=== PATIENT | male | born 1975 | race Caucasian/White ===

== ENCOUNTER 2022-11-26 03:55 | Inpatient (IN) | payer MEDICAID, OTHER ==
[~2022-11-26] VITALS: Ht 182.9 cm; Wt 91.3 kg
[2022-11-26] VITALS (8 sets, daily range): BP systolic 125–139; BP diastolic 72–87; PULSE 53–72; RESP 12–18; TEMP 97.4–98; O2SAT 95–100
[2022-11-26 04:22] LABS: Basophils # (auto) 0 10 ^3/uL (0-0.2); Basophils % (auto) 0.4 % (0.0-2.0); Eosinophils # (auto) 0.1 10 ^3/uL (0-0.8); Eosinophils % (auto) 0.7 % (0.0-7.0); Hematocrit 45.6 % (41.0-53.0); Hemoglobin 15.5 g/dL (13.5-17.5); Lymphocytes % (auto) 8.8 % (10.0-50.0); Mean Corpuscular Hemoglobin 31.6 pg (28.0-32.0); Monocytes # (auto) 0.4 10 ^3/uL (0-1.3); Monocytes % (auto) 3.3 % (0.0-12.0); Neutrophils # (auto) 9.8 10 ^3/uL (1.6-8.6); Neutrophils % (auto) 86.8 % (37.0-80.0); Red Cell Distribution Width 13.4 % (11.8-14.3); White Blood Cell 11.3 10^3/uL (4.4-10.8)
[2022-11-26 04:46] LABS: Alanine Aminotransferase 17 U/L (7-40); Albumin 4.6 g/dL (3.2-4.8); Alkaline Phosphatase 73 U/L (46-116); Anion Gap 4 (5-15); Aspartate Aminotransferase 15 U/L (13-40); BUN/Creatinine Ratio 11.7 (10.0-20.0); Bilirubin, Total 0.5 mg/dL (0.2-1.0); Blood Urea Nitrogen 14 mg/dL (9-23); Calcium 9.3 mg/dL (8.7-10.4); Carbon Dioxide 27 mmol/L (20-30); Chloride 104 mmol/L (98-107); Glucose 131 mg/dL (74-106); Magnesium 1.8 mg/dL (1.6-2.6); Potassium 3.8 mmol/L (3.5-5.1); Sodium 135 mmol/L (136-145); Total Protein 7.4 g/dL (5.7-8.2)
[2022-11-26] MEDS ORDERED: MAALOX PLUS or MAALOX 30 ML PO ONE (05:30)
[2022-11-26] MEDS ORDERED: ONDANSETRON HCL 4 MG/2 ML VIAL IV ONE ×3 (05:30→09:00)
[2022-11-26] MEDS ORDERED: DONNATAL 5ml ORAL Elix (BELLADONNA ALK-PHENOBARB) PO ONE (05:30)
[2022-11-26] MEDS ORDERED: LIDOCAINE VISCOUS 2% 15ML UD PO ONE (05:30)
[2022-11-26] MEDS ORDERED: MORPHINE SULFATE 4 MG/ML SYR/VIAL IV ONE (06:30)
[2022-11-26] MEDS ORDERED: SODIUM CHLORIDE 0.9% 1,000 ML IV ONE (06:30)
[2022-11-26] MEDS ORDERED: MORPHINE SULFATE INJ 2 MG/ml SYRG IV ONE (09:00)
[2022-11-26] MEDS ORDERED: ONDANSETRON HCL 4 MG/2 ML VIAL IV PRN ×2 (09:15)
[2022-11-26] MEDS ORDERED: MORPHINE SULFATE 4 MG/ML SYR/VIAL IV PRN (09:15)
[2022-11-26] MEDS ORDERED: DOCUSATE SOD 100 MG CAP PO PRN (09:15)
[2022-11-26] MEDS ORDERED: NITROGLYCERIN 0.4 MG SL TAB SL PRN (09:15)
[2022-11-26] MEDS ORDERED: ACETAMINOPHEN 325 MG TAB PO PRN (09:15)
[2022-11-26] MEDS: SODIUM CHLORIDE 0.9% 1,000 ML IV SCH ×3 (09:59→18:38)
[2022-11-26 10:19] LABS: INR 0.95 (0.9-1.15)
[2022-11-26] MEDS: ASPirin 81 mg TAB PO SCH (10:50)
[2022-11-26] MEDS: DOCUSATE SOD 100 MG CAP PO SCH (10:50)
[2022-11-26] MEDS: ENOXAPARIN SOD 100 MG/1 ML SYRINGE SC SCH ×2 (10:51→21:45)
[2022-11-26] MEDS: PANTOPRAZOLE 40 MG/10 ML VIAL INJ IV SCH (10:51)
[2022-11-26] MEDS: PIPERACILLIN-TAZOB 3.375GM 100 ML IV SCH ×2 (12:00→18:33)
[2022-11-26] MEDS: MORPHINE SULFATE INJ 2 MG/ml SYRG IV PRN (15:34)
[2022-11-26 18:00] LABS: Triglycerides 55 mg/dL (< 150)
[2022-11-26 18:01] LABS: LDL Cholesterol 83 mg/dL (< 100)
[2022-11-26 18:02] LABS: Cholesterol 155 mg/dL (< 200); HDL Cholesterol 61 mg/dL (40-59)
[2022-11-26] MEDS: metroNIDAZOLE 500MG/100ML 100 ML IV SCH ×2 (21:44→23:52)
[2022-11-26] MEDS: ATORVASTATIN 20 MG TAB PO SCH (21:44)
[2022-11-27] VITALS (8 sets, daily range): BP systolic 126–132; BP diastolic 75–81; PULSE 56–79; RESP 16–17; TEMP 97.8–98.6; O2SAT 95–98
[2022-11-27] MEDS: PIPERACILLIN-TAZOB 3.375GM 100 ML IV SCH ×2 (01:17→06:02)
[2022-11-27 07:35] LABS: Basophils # (auto) 0 10 ^3/uL (0-0.2); Basophils % (auto) 0.1 % (0.0-2.0); Eosinophils # (auto) 0.1 10 ^3/uL (0-0.8); Eosinophils % (auto) 1.1 % (0.0-7.0); Hematocrit 44.5 % (41.0-53.0); Hemoglobin 15.2 g/dL (13.5-17.5); Lymphocytes # (auto) 0.8 10 ^3/uL (0.4-5.4); Lymphocytes % (auto) 7.4 % (10.0-50.0); Mean Corpuscular Hemoglobin 31.5 pg (28.0-32.0); Mean Corpuscular Hgb Conc. 34.1 g/dL (32.0-36.0); Mean Corpuscular Volume 92.5 fL (80.0-100.0); Monocytes # (auto) 0.7 10 ^3/uL (0-1.3); Monocytes % (auto) 6.3 % (0.0-12.0); Neutrophils # (auto) 9.5 10 ^3/uL (1.6-8.6); Neutrophils % (auto) 85.1 % (37.0-80.0); Red Blood Cells 4.81 10^6/uL (4.5-5.90); Red Cell Distribution Width 13.1 % (11.8-14.3); White Blood Cell 11.1 10^3/uL (4.4-10.8)
[2022-11-27 07:55] LABS: Alanine Aminotransferase 20 U/L (7-40); Albumin 4.1 g/dL (3.2-4.8); Alkaline Phosphatase 58 U/L (46-116); Anion Gap 3 (5-15); Aspartate Aminotransferase 19 U/L (13-40); BUN/Creatinine Ratio 9.1 (10.0-20.0); Bilirubin, Total 1.1 mg/dL (0.2-1.0); Blood Urea Nitrogen 10 mg/dL (9-23); Carbon Dioxide 30 mmol/L (20-30); Chloride 101 mmol/L (98-107); Cholesterol 139 mg/dL (< 200); Glucose 111 mg/dL (74-106); HDL Cholesterol 56 mg/dL (40-59); LDL Cholesterol 66 mg/dL (< 100); Potassium 4.3 mmol/L (3.5-5.1); Sodium 134 mmol/L (136-145); Total Protein 6.8 g/dL (5.7-8.2); Triglycerides 77 mg/dL (< 150)
[2022-11-27] MEDS: metroNIDAZOLE 500MG/100ML 100 ML IV SCH ×2 (08:18→15:30)
[2022-11-27] MEDS: PANTOPRAZOLE 40 MG/10 ML VIAL INJ IV SCH (09:19)
[2022-11-27] MEDS: cefTRIAXone 1GM/50ML D5W 50 ML IV SCH (09:19)
[2022-11-27] MEDS: DOCUSATE SOD 100 MG CAP PO SCH (09:20)
[2022-11-27] MEDS: MORPHINE SULFATE INJ 2 MG/ml SYRG IV PRN ×2 (09:20→14:00)
[2022-11-27] MEDS: ASPirin 81 mg TAB PO SCH (09:20)
[2022-11-27] MEDS: ENOXAPARIN SOD 100 MG/1 ML SYRINGE SC SCH ×2 (09:20→21:01)
[2022-11-27] MEDS: SODIUM CHLORIDE 0.9% 1,000 ML IV SCH ×3 (10:15→21:48)
[2022-11-27] MEDS: HYDROmorphone HCL 2 MG/ML VL/or syr IV PRN (20:03)
[2022-11-27] MEDS: ATORVASTATIN 20 MG TAB PO SCH (21:47)
[2022-11-28] VITALS (7 sets, daily range): BP systolic 104–137; BP diastolic 69–80; PULSE 74–86; RESP 16–17; TEMP 97.9–98.6; O2SAT 94–100
[2022-11-28] MEDS: metroNIDAZOLE 500MG/100ML 100 ML IV SCH ×3 (00:03→16:01)
[2022-11-28] MEDS: HYDROmorphone HCL 2 MG/ML VL/or syr IV PRN ×3 (04:01→21:14)
[2022-11-28 05:48] LABS: Basophils # (auto) 0 10 ^3/uL (0-0.2); Basophils % (auto) 0.3 % (0.0-2.0); Eosinophils # (auto) 0.1 10 ^3/uL (0-0.8); Eosinophils % (auto) 1.1 % (0.0-7.0); Hematocrit 45.2 % (41.0-53.0); Hemoglobin 15.4 g/dL (13.5-17.5); Lymphocytes % (auto) 7.6 % (10.0-50.0); Mean Corpuscular Hemoglobin 31.5 pg (28.0-32.0); Mean Corpuscular Hgb Conc. 34.1 g/dL (32.0-36.0); Mean Corpuscular Volume 92.2 fL (80.0-100.0); Monocytes # (auto) 1.1 10 ^3/uL (0-1.3); Monocytes % (auto) 8.5 % (0.0-12.0); Neutrophils # (auto) 10.5 10 ^3/uL (1.6-8.6); Neutrophils % (auto) 82.5 % (37.0-80.0); Red Blood Cells 4.91 10^6/uL (4.5-5.90); Red Cell Distribution Width 13.1 % (11.8-14.3); White Blood Cell 12.7 10^3/uL (4.4-10.8)
[2022-11-28 06:21] LABS: Alanine Aminotransferase 15 U/L (7-40); Alkaline Phosphatase 63 U/L (46-116); Anion Gap 7 (5-15); Aspartate Aminotransferase 13 U/L (13-40); BUN/Creatinine Ratio 8.3 (10.0-20.0); Bilirubin, Total 0.8 mg/dL (0.2-1.0); Blood Urea Nitrogen 8 mg/dL (9-23); Calcium 8.6 mg/dL (8.7-10.4); Carbon Dioxide 26 mmol/L (20-30); Chloride 100 mmol/L (98-107); Glucose 88 mg/dL (74-106); Magnesium 1.6 mg/dL (1.6-2.6); Sodium 133 mmol/L (136-145)
[2022-11-28 06:22] LABS: Total Protein 6.5 g/dL (5.7-8.2)
[2022-11-28] MEDS: ASPirin 81 mg TAB PO SCH (08:31)
[2022-11-28] MEDS: cefTRIAXone 1GM/50ML D5W 50 ML IV SCH (08:31)
[2022-11-28] MEDS: DOCUSATE SOD 100 MG CAP PO SCH (08:31)
[2022-11-28] MEDS: ENOXAPARIN SOD 100 MG/1 ML SYRINGE SC SCH ×2 (08:31→21:15)
[2022-11-28] MEDS: PANTOPRAZOLE 40 MG/10 ML VIAL INJ IV SCH (08:31)
[2022-11-28] MEDS: SODIUM CHLORIDE 0.9% 1,000 ML IV SCH (11:15)
[2022-11-28] MEDS ORDERED: BUPIVACAINE 0.25% INJ 50ML VIAL ONE (11:32)
[2022-11-28] MEDS ORDERED: ONDANSETRON HCL 4 MG/2 ML VIAL ONE (11:43)
[2022-11-28] MEDS ORDERED: SUGAMMADEX 200mg/2ml Vial (100MG/ML) IV ONE (11:43)
[2022-11-28] MEDS ORDERED: GLYCOPYRROLATE 0.2 MG/ML 1ML VIAL ONE (11:43)
[2022-11-28] MEDS ORDERED: DexAMETHasone SOD PHOS 10MG/1ML VIAL INJ ONE (11:43)
[2022-11-28] MEDS ORDERED: LIDOCAINE 2% (LOCAL ANESTH.) PF 5ml SDV ONE (11:43)
[2022-11-28] MEDS ORDERED: HYDROmorphone HCL 2 MG/ML VL/or syr ONE (11:43)
[2022-11-28] MEDS ORDERED: KETOROLAC TROMETH 30 MG/ML 1ML VIAL ONE (11:43)
[2022-11-28] MEDS ORDERED: PROPOFOL 10 MG/ML 20 ML IV ONE (11:43)
[2022-11-28] MEDS ORDERED: MIDAZOLAM HCL 2MG/2ML 2ml VIAL (1mg/ml) ONE (11:43)
[2022-11-28] MEDS ORDERED: fentaNYL CITRATE 100 MCG/2 ML VL ONE ×2 (11:43→12:32)
[2022-11-28] MEDS ORDERED: ROCURONIUM 10MG/ML 10ML VIAL IV ONE (11:44)
[2022-11-28] MEDS ORDERED: NICOTINE 21MG/24 HR TOPICAL PATCH TD ONE (11:45)
[2022-11-28] MEDS ORDERED: ePHEDrine SULFATE 50 MG/ML AMP IV ONE (13:14)
[2022-11-28] MEDS ORDERED: MEPERIDINE HCL (25 MG/ML) 1ML VIAL ONE (13:24)
[2022-11-28] MEDS ORDERED: ONDANSETRON HCL 4 MG/2 ML VIAL IV PRN (14:15)
[2022-11-28] MEDS ORDERED: HYDROmorphone HCL 2 MG/ML VL/or syr IV PRN (14:15)
[2022-11-28] MEDS: ATORVASTATIN 20 MG TAB PO SCH (21:14)
[2022-11-29] MEDS: metroNIDAZOLE 500MG/100ML 100 ML IV SCH ×3 (01:06→15:44)
[2022-11-29] MEDS: HYDROmorphone HCL 2 MG/ML VL/or syr IV PRN ×4 (04:03→21:20)
[2022-11-29 05:00] VITALS: BP 112/70; PULSE 72; RESP 18; TEMP 97.9; O2SAT 97
[2022-11-29] MEDS: SODIUM CHLORIDE 0.9% 1,000 ML IV SCH ×2 (06:46→10:34)
[2022-11-29 08:00] VITALS: PULSE 83; PULSE 93; RESP 18; O2SAT 98
[2022-11-29 09:00] VITALS: BP 110/72; PULSE 77; RESP 18; TEMP 97.7; O2SAT 95
[2022-11-29] MEDS: ASPirin 81 mg TAB PO SCH (09:25)
[2022-11-29] MEDS: PANTOPRAZOLE 40 MG/10 ML VIAL INJ IV SCH (09:25)
[2022-11-29] MEDS: NICOTINE 21MG/24 HR TOPICAL PATCH TD SCH (09:25)
[2022-11-29] MEDS: cefTRIAXone 1GM/50ML D5W 50 ML IV SCH (09:25)
[2022-11-29] MEDS: DOCUSATE SOD 100 MG CAP PO SCH (09:25)
[2022-11-29] MEDS: ENOXAPARIN SOD 100 MG/1 ML SYRINGE SC SCH (09:25)
[2022-11-29] MEDS: MAGNESIUM SULFATE 1GM/100ML 100 ML IV SCH ×2 (10:34→11:45)
[2022-11-29 17:00] VITALS: BP 122/76; PULSE 77; RESP 20; TEMP 98.4; O2SAT 97
[2022-11-29 20:00] VITALS: PULSE 89
[2022-11-29] MEDS: ATORVASTATIN 20 MG TAB PO SCH (21:11)
[2022-11-29 22:00] VITALS: BP 133/85; PULSE 83; RESP 19; TEMP 98.3; O2SAT 96
[2022-11-29 23:17] LABS: Basophils # (auto) 0 10 ^3/uL (0-0.2); Basophils % (auto) 0.3 % (0.0-2.0); Eosinophils # (auto) 0.2 10 ^3/uL (0-0.8); Eosinophils % (auto) 2.6 % (0.0-7.0); Hematocrit 41.6 % (41.0-53.0); Hemoglobin 13.9 g/dL (13.5-17.5); Lymphocytes % (auto) 22.6 % (10.0-50.0); Mean Corpuscular Hemoglobin 31.3 pg (28.0-32.0); Mean Corpuscular Hgb Conc. 33.3 g/dL (32.0-36.0); Monocytes # (auto) 0.7 10 ^3/uL (0-1.3); Monocytes % (auto) 7.4 % (0.0-12.0); Neutrophils # (auto) 5.9 10 ^3/uL (1.6-8.6); Neutrophils % (auto) 67.1 % (37.0-80.0); Red Blood Cells 4.43 10^6/uL (4.5-5.90); Red Cell Distribution Width 13.3 % (11.8-14.3); White Blood Cell 8.8 10^3/uL (4.4-10.8)
[2022-11-29 23:34] LABS: Alanine Aminotransferase 75 U/L (7-40); Albumin 3.5 g/dL (3.2-4.8); Alkaline Phosphatase 60 U/L (46-116); Anion Gap 5 (5-15); Aspartate Aminotransferase 79 U/L (13-40); BUN/Creatinine Ratio 8.2 (10.0-20.0); Blood Urea Nitrogen 8 mg/dL (9-23); Calcium 7.9 mg/dL (8.7-10.4); Carbon Dioxide 27 mmol/L (20-30); Chloride 106 mmol/L (98-107); Glucose 95 mg/dL (74-106); Potassium 3.7 mmol/L (3.5-5.1); Sodium 138 mmol/L (136-145)
[2022-11-29 23:35] LABS: Bilirubin, Total 0.2 mg/dL (0.2-1.0); Total Protein 5.8 g/dL (5.7-8.2)
[2022-11-30] MEDS: metroNIDAZOLE 500MG/100ML 100 ML IV SCH ×2 (01:31→09:42)
[2022-11-30] MEDS: SODIUM CHLORIDE 0.9% 1,000 ML IV SCH (03:10)
[2022-11-30 05:00] VITALS: BP 126/72; PULSE 71; RESP 19; TEMP 98.4; O2SAT 94
[2022-11-30] MEDS: HYDROmorphone HCL 2 MG/ML VL/or syr IV PRN ×2 (05:23→09:28)
[2022-11-30 05:51] LABS: Basophils # (auto) 0 10 ^3/uL (0-0.2); Basophils % (auto) 0.3 % (0.0-2.0); Eosinophils # (auto) 0.2 10 ^3/uL (0-0.8); Eosinophils % (auto) 3.5 % (0.0-7.0); Hematocrit 37.9 % (41.0-53.0); Hemoglobin 12.7 g/dL (13.5-17.5); Lymphocytes # (auto) 1.8 10 ^3/uL (0.4-5.4); Lymphocytes % (auto) 27.8 % (10.0-50.0); Mean Corpuscular Hemoglobin 31.1 pg (28.0-32.0); Mean Corpuscular Hgb Conc. 33.5 g/dL (32.0-36.0); Mean Corpuscular Volume 92.7 fL (80.0-100.0); Monocytes # (auto) 0.4 10 ^3/uL (0-1.3); Neutrophils # (auto) 3.9 10 ^3/uL (1.6-8.6); Neutrophils % (auto) 61.4 % (37.0-80.0); Red Blood Cells 4.09 10^6/uL (4.5-5.90); Red Cell Distribution Width 13.2 % (11.8-14.3); White Blood Cell 6.3 10^3/uL (4.4-10.8)
[2022-11-30 06:05] LABS: Alanine Aminotransferase 68 U/L (7-40); Albumin 3.3 g/dL (3.2-4.8); Alkaline Phosphatase 54 U/L (46-116); Anion Gap 5 (5-15); Aspartate Aminotransferase 64 U/L (13-40); Bilirubin, Total 0.3 mg/dL (0.2-1.0); Blood Urea Nitrogen 8 mg/dL (9-23); Carbon Dioxide 28 mmol/L (20-30); Chloride 107 mmol/L (98-107); Glucose 97 mg/dL (74-106); Magnesium 1.8 mg/dL (1.6-2.6); Potassium 3.9 mmol/L (3.5-5.1); Sodium 140 mmol/L (136-145); Total Protein 5.4 g/dL (5.7-8.2)
[2022-11-30 08:00] VITALS: PULSE 65; PULSE 93; RESP 20; O2SAT 95
[2022-11-30 09:00] VITALS: BP 135/65; PULSE 61; RESP 16; TEMP 98.6; O2SAT 93
[2022-11-30] MEDS: cefTRIAXone 1GM/50ML D5W 50 ML IV SCH (09:15)
[2022-11-30] MEDS: DOCUSATE SOD 100 MG CAP PO SCH (09:16)
[2022-11-30] MEDS: PANTOPRAZOLE 40 MG/10 ML VIAL INJ IV SCH (09:16)
[2022-11-30] MEDS: NICOTINE 21MG/24 HR TOPICAL PATCH TD SCH (09:16)
[2022-11-30] MEDS: ASPirin 81 mg TAB PO SCH (09:16)
[2022-11-30] MEDS ORDERED: ACE3T PO (11:55)
[2022-11-30] MEDS ORDERED: AUG875T PO (11:55)
[2022-11-30 12:02] VITALS: BP 112/82; PULSE 98; RESP 18; TEMP 97.9; O2SAT 95
== END 2022-11-30 13:15 | disposition home or self-care (01) | DRG 263 ==
LOC: ER 03:55 → TELE 09:27 → TELE-WESTW 12:51
PROVIDERS: ADMIT Nurse Practitioner Family; ATTEND Internal Medicine Geriatric Medicine
PROC: 0FT44ZZ Resection of Gallbladder, Percutaneous Endoscopic Approach (ICD-10-PCS; principal; 2022-11-28 11:52)
DX: K80.00 Calculus of gallbladder with acute cholecystitis without obstruction (principal); K65.1 Peritoneal abscess; E87.1 Hypo-osmolality and hyponatremia; E11.9 Type 2 diabetes mellitus without complications; E86.0 Dehydration; F12.10 Cannabis abuse, uncomplicated; K57.90 Diverticulosis of intestine, part unspecified, without perforation or abscess without bleeding; I10 Essential (primary) hypertension; K59.00 Constipation, unspecified; Z72.0 Tobacco use; Z71.6 Tobacco abuse counseling
CPT/HCPCS: 36415; 71045; 74176; 76705; 80053; 80061; 82962; 83036; 83605; 83690; 83735; 83880; 84100; 84443; 84484; 85025; 85379; 85610; 86850; 86900; 86901; 87040; 93005; 93306; 96361; 96374; 96375; 96376; C9113; G0378; J0696; J1100; J1885; J2001; J2250; J2405; J2543; J2704; J3490